=== PATIENT | male | born 1945 | race Hispanic/Latino ===

== ENCOUNTER 2016-07-25 12:36 | Observation (INO) | payer MEDICARE, MEDICAID ==
[2016-07-25 12:54] VITALS: BMI 31.2
[2016-07-25 13:01] VITALS: O2SAT 98
--- NOTE | 2016-07-25 13:06 | ED PDOC ---
Arrival/HPI - General Chief Complaint: High Blood Sugar Time Seen by Provider: 07/25/16 12:38 Historian: Patient - History of Present Illness Narrative History of Present Illness (Text): 07/25/16 12:59 A 71 year old male, whose past medical history includes diabetes (on metformin and januvia), hypertension, high cholesterol, congestive heart failure (on lasix ), COPD and emphysema, was brought in by EMS to the emergency department for a high blood sugar today. Patient states he was in a free medical screening, where the nurse called EMS because of his high blood sugar level. Patient reports he has not taking his [place] today because he ran out of it two days ago. Patient denies any fever, cough, shortness of breath, chest pain or any other complaints at this time. PMD: Dr. Beatty Time/Duration: 4-6 hours Symptom Onset: Gradual Symptom Course: Unchanged Quality: Other Activities at Onset: Rest Modifying Factors (Text): none Context: Home Associated Symptoms (Text): none Past Medical History - Provider Review Nursing Documentation Reviewed: Yes - Past History Past History: Non-Contributing - Infectious Disease Hx of Infectious Diseases: None - Tetanus Immunization Tetanus Immunization: Unknown - Cardiac Hx Congestive Heart Failure: Yes Hx Hypertension: Yes - Pulmonary Hx Chronic Obstructive Pulmonary Disease (COPD): Yes - Neurological Hx Transient Ischemic Attacks (TIA): No - HEENT Hx HEENT Disorder: Yes Hx Cataracts: Yes - Renal Hx Renal Disorder: Yes Hx Pyelonephritis: Yes - Endocrine/Metabolic Hx Diabetes Mellitus Type 1: Yes Hx Diabetes Mellitus Type 2: Yes - Hematological/Oncological Hx Blood Disorders: No - Integumentary Hx Dermatological Disorder: No Other/Comment: RIGHT KNEE WITH BLK SCAB FROM FALL SKIN ABRASION 06-07-15,LEFT KNEE WITH SCARRING FROM FALLS - Musculoskeletal/Rheumatological Hx Falls: Yes - Gastrointestinal Hx Gastrointestinal Disorders: Yes Hx Gastroesophageal Reflux: Yes - Genitourinary/Gynecological Hx Genitourinary Disorders: No - Psychiatric Hx Psychophysiologic Disorder: Yes Hx Bipolar Disorder: Yes Hx Depression: Yes (With shock treatments) Hx Schizophrenia: Yes Hx Substance Use: No - Past Surgical History Past Surgical History: No Previous - Surgical History Hx Amputation: No Hx Appendectomy: No - Anesthesia Hx Anesthesia: No Hx Anesthesia Reactions: No Hx Malignant Hyperthermia: No - Suicidal Assessment Feels Threatened In Home Enviroment: No Family/Social History - Physician Review Nursing Documentation Reviewed: Yes Family/Social History: No Known Family HX Smoking Status: Never Smoked Hx Alcohol Use: No Hx Substance Use: No Hx Substance Use Treatment: No Allergies/Home Meds Allergies/Adverse Reactions: Allergies No Known Allergies Allergy (Verified 04/21/16 21:09) Home Medications: Home Meds Medication Instructions Recorded Confirmed Clonazepam 1 mg PO DAILY 01/01/12 07/25/16 Simvastatin 40 mg PO DAILY 01/01/12 07/25/16 Celecoxib 200 mg PO DAILY 07/24/14 07/25/16 Ergocalciferol [Drisdol 50,000 50,000 iu PO MON 07/24/14 07/25/16 Intl Units Cap] Sitagliptin Phosphate [Januvia] 100 mg PO DAILY 07/24/14 07/25/16 Enalapril Maleate [Vasotec] 5 mg PO DAILY 05/22/16 07/25/16 Gabapentin 300 mg PO TID 05/22/16 07/25/16 GlipiZIDE 10 mg PO DAILY 05/22/16 07/25/16 Olanzapine 10 mg PO HS 05/22/16 07/25/16 Clonazepam [Klonopin] 2 mg PO HS 07/25/16 07/25/16 Divalproex Sodium [Divalproex 1,500 mg PO HS 07/25/16 07/25/16 Sodium ER] Gonpa-6-Glln Ethyl Esters 1 GM 1 tab PO BID 07/25/16 07/25/16 [Lovaza] metFORMIN [glucOPHAGE] 1,000 mg PO BID 07/25/16 07/25/16 Review of Systems - Physician Review All systems were reviewed & negative as marked: Yes - Review of Systems Constitutional: Other (high blood sugar). absent: Fevers Respiratory: absent: SOB, Cough Cardiovascular: absent: Chest Pain Physical Exam Vital Signs Reviewed: Yes Vital Signs Temp Pulse Resp BP Pulse Ox 07/25/16 17:37 97.2 F L 86 16 136/77 98 07/25/16 16:48 97.8 F 91 H 16 149/89 98 07/25/16 15:00 86 18 146/82 98 07/25/16 13:00 97.6 F 97 H 18 154/92 H 98 Temperature: Afebrile Blood Pressure: Hypertensive Pulse: Regular Respiratory Rate: Normal Appearance: Positive for: Well-Appearing, Non-Toxic, Comfortable Mental Status: Positive for: Alert and Oriented X 3 - Systems Exam Head: Present: Atraumatic, Normocephalic Pupils: Present: PERRL Extroacular Muscles: Present: EOMI Conjunctiva: Present: Normal Mouth: Present: Moist Mucous Membranes Neck: Present: Normal Range of Motion Respiratory/Chest: Present: Clear to Auscultation, Good Air Exchange. No: Respiratory Distress, Accessory Muscle Use Cardiovascular: Present: Regular Rate and Rhythm, Normal S1, S2. No: Murmurs Abdomen: Present: Normal Bowel Sounds. No: Tenderness, Distention, Peritoneal Signs Back: Present: Normal Inspection Upper Extremity: Present: Normal Inspection. No: Cyanosis, Edema Lower Extremity: Present: Edema (2+ pitting edema bilaterally) Neurological: Present: GCS=15, CN II-XII Intact, Speech Normal Skin: Present: Warm, Dry, Normal Color. No: Rashes Psychiatric: Present: Alert, Oriented x 3, Normal Insight, Normal Concentration Medical Decision Making ED Course and Treatment: 07/25/16 13:10 Impression: 71 year old male complaining of high blood sugar. Differential Diagnosis included but are not limited to: hyperglycemia Plan: -- EKG -- Chest X-ray -- Labs -- Urinalysis -- Reassess and disposition Prior Visits: Notes and results from previous visits were reviewed. The patient last presented to the emergency department on 05/22/16 for evaluation of a near syncope episode. - Lab Interpretations I have reviewed the lab results: Yes - Medication Orders Current Medication Orders: Discontinued Medications Sodium Chloride (Sodium Chloride 0.9%) 500 mls @ 999 mls/hr IV .Q31M STA Stop: 07/25/16 14:35 Last Admin: 07/25/16 14:21 Dose: 999 MLS/HR eMAR Start Stop Document 07/25/16 14:21 ERIC (Rec: 07/25/16 14:21 ERIC [id number]) Intravenous Solution Start Date 07/25/16 Start Time 14:15 End Date 07/25/16 End time 14:45 Total Infusion Time 30 Insulin Human Regular (Humulin R) 10 units IVP STAT STA Stop: 07/25/16 14:04 Last Admin: 07/25/16 14:21 Dose: 10 UNITS IVP Administration Document 07/25/16 14:21 ERIC (Rec: 07/25/16 14:22 [facility] [id number]) Charges for Administration # of IVP Administrations 1 Insulin Human Regular (Humulin R) 10 units IVP STAT STA Stop: 07/25/16 15:06 Last Admin: 07/25/16 15:58 Dose: 10 UNITS IVP Administration Document 07/25/16 15:58 [facility] (Rec: 07/25/16 15:58 [place] [id number]) Charges for Administration # of IVP Administrations 1 Insulin Human Regular (Humulin R) 10 units IVP STAT STA Stop: 07/25/16 16:49 Last Admin: 07/25/16 17:03 Dose: 10 UNITS IVP Administration Document 07/25/16 17:03 [facility] (Rec: 07/25/16 17:03 [place] [id number]) Charges for Administration # of IVP Administrations 1 ED OBSERVATION Date of observation admission: 07/25/16 Time of observation admission: 12:44 - Observation admission statement Patient is being placed in observation because:: high blood sugar level - Goals of Observation Goals of observation are:: blood glucose control - Progress Note Progress Note: EKG: Ordered, reviewed, and independently interpreted the EKG. Rate : 92 BPM Rhythm : NSR Interpretation : Q waves in leads III and avF. 07/25/16 13:52 Chest X-Ray impression: As read by me, no acute findings. 07/25/16 14:03 Patient blood glucose is 527 and potassium is 5.8. Will give Insulin and IV Fluids. 07/25/16 14:11 Dr. Beatty was paged. 07/25/16 15:04 Patient blood sugar has gone down to 372. Will give another Insulin. 07/25/16 16:18 Dr. Beatty paged. 07/25/16 16:48 A third insulin ordered. 07/25/16 17:[address] Beatty, who came to the emergency department, she states it is okay to discharge patient home and she will follow up with him out patient. On re-evaluation, the patient feels better and is in no acute distress. I have discussed the results and plan with the patient, who expresses understanding. Patient in agreement with plan to discharged home. Patient is stable for discharge. Patient was instructed to follow up with physician/clinic in 1-2 days or return if symptoms worsen or new concerning symptoms arise. - Scribe Statement The provider has reviewed the documentation as recorded by the Luis A Chairez training under Victoriano Marina All medical record entries made by the Henokibnafisa were at my direction and personally dictated by me. I have reviewed the chart and agree that the record accurately reflects my personal performance of the history, physical exam, medical decision making, and the department course for this patient. I have also personally directed, reviewed, and agree with the discharge instructions and disposition. Disposition/Present on Arrival - Present on Arrival Any Indicators Present on Arrival: Yes History of DVT/PE: No History of Uncontrolled Diabetes: Yes Urinary Catheter: No History of Decub. Ulcer: No History Surgical Site Infection Following: None - Disposition Have Diagnosis and Disposition been Completed?: Yes Diagnosis: Hyperglycemia Disposition: HOME/ ROUTINE Disposition Time: 12:44 Patient Plan: Discharge Patient Problems: Current Active Problems Problem Status Diagnosed Chest pain Acute Dizziness Acute Dysuria Acute Hematuria Acute Pyelonephritis Acute Syncope Acute Urinary tract infection Acute Condition: IMPROVED
[2016-07-25 13:38] LABS: ADD MANUAL DIFF? NO
[2016-07-25 13:44] LABS: VENOUS BLOOD GAS BASE EXCESS -0.8 mmol/L (0.0-2.0); VENOUS BLOOD PH 7.34 (7.32-7.43)
[2016-07-25 13:50] LABS: BASO # 0.02 K/mm3 (0.0-2.0); BASO % 0.3 % (0.0-3.0); EOS # 0.1 (0.0-0.7); EOS % 1.6 % (1.5-5.0); GRAN # 3.68 (1.4-6.5); GRAN % 54.4 % (50.0-68.0); HEMATOCRIT 32.2 % (42.0-52.0); LYMPH # 2.4 (1.2-3.4); LYMPH % 35.7 % (22.0-35.0); MEAN CELL VOLUME 83.6 fL (80.0-105.0); MEAN CORPUSCULAR HEMOGLOBIN 28.3 pg (25.0-35.0); MEAN CORPUSCULAR HGB CONC 33.9 g/dl (31.0-37.0); MEAN PLATELET VOLUME 9.5 fl (7.0-11.0); MONO # 0.5 (0.1-0.6); PLATELET COUNT 248 10^3/uL (120.0-450.0); RED CELL DISTRIBUTION WIDTH 13.2 % (11.5-14.5); WHITE BLOOD COUNT 6.8 10^3/ul (4.5-11.0)
[2016-07-25 13:53] LABS: ALB/GLOB RATIO 1.2 (1.1-1.8); ALKALINE PHOSPHATASE 63 U/L (38-133); ALT/SGPT 33 U/L (7-56); AST/SGOT 20 U/L (15-59); BILIRUBIN,TOTAL 0.5 mg/dL (0.2-1.3); BLOOD UREA NITROGEN 27 mg/dL (7-21); CALCIUM 9.4 mg/dL (8.4-10.5); CARBON DIOXIDE 25 mmol/L (21-33); CHLORIDE 97 mmol/L (98-107); GFR AFRICAN-AMERICAN > 60; MAGNESIUM 1.7 mg/dL (1.7-2.2); PHOSPHOROUS 3.5 mg/dL (2.5-4.5); SODIUM 129 mmol/L (132-148); TOTAL PROTEIN 6.4 g/dL (5.8-8.3)
[2016-07-25] MEDS ORDERED: Insulin Regular 1 UNITS/0.01 ML ML IVP STA ×3 (14:03→16:48)
[2016-07-25 14:04] LABS: GLUCOSE,RANDOM 527 mg/dL (70-110)
[2016-07-25 14:05] LABS: POTASSIUM 5.8 mmol/L (3.6-5.0)
[2016-07-25] MEDS ORDERED: Sodium Chloride 0.9% 500 ML IV STA (14:05)
--- NOTE | 2016-07-25 14:12 | RAD ---
HISTORY: Sepsis Patient COMPARISON: 05/21/2016 FINDINGS: LUNGS: No active pulmonary disease. PLEURA: No significant pleural effusion identified, no pneumothorax apparent. CARDIOVASCULAR: Normal. OSSEOUS STRUCTURES: No significant abnormalities. VISUALIZED UPPER ABDOMEN: Normal. OTHER FINDINGS: None. IMPRESSION: No active disease.
--- NOTE | 2016-07-25 15:49 | CARD ---
APPROVED REPORT EKG Measurement Heart [id number] <Conclusion> Normal sinus rhythm Inferior infarct, age undetermined Possible Anterior infarct, age undetermined Abnormal ECG
[2016-07-25 16:10] LABS: URINE BILIRUBIN NEGATIVE (NEGATIVE); URINE BLOOD SMALL (NEGATIVE); URINE GLUCOSE (UA) >=1000 mg/dL (NEGATIVE); URINE KETONE NEGATIVE (NEGATIVE); URINE LEUKOCYTE ESTERASE NEGATIVE Leu/uL (NEGATIVE); URINE PROTEIN 100 mg/dL (<30 mg/dL); URINE UROBILINOGEN 0.2 E.U./dL (<1 E.U./dL)
[2016-07-25 16:12] LABS: URINE APPEARANCE CLEAR (CLEAR); URINE COLOR YELLOW (YELLOW)
[2016-07-25 16:35] LABS: URINE BACTERIA NEG (NEG); URINE EPITHELIAL CELLS 0 - 2 /hpf (0-5); URINE RBC 0 - 2 /hpf (0-2); URINE WBC NEGATIVE /hpf (0-6)
[2016-07-25 16:49] VITALS: RESP 16
[2016-07-25 16:53] LABS: VENOUS BLOOD GAS BASE EXCESS -0.8 mmol/L (0.0-2.0); VENOUS BLOOD PH 7.38 (7.32-7.43)
[2016-07-25 17:38] VITALS: BP 136/77; PULSE 86; TEMP 97.2
== END 2016-07-25 17:59 | disposition home or self-care (01) ==
LOC: ED 12:36 → EROBSV 12:40
PROVIDERS: ADMIT Emergency Medicine; ATTEND Emergency Medicine
DX: E11.65 Type 2 diabetes mellitus with hyperglycemia (principal); Z79.84 Long term (current) use of oral hypoglycemic drugs; I10 Essential (primary) hypertension; E78.00 Pure hypercholesterolemia, unspecified
CPT/HCPCS: 71010; 80053; 81001; 82803; 82948; 83735; 84100; 85025; 87040; 87086; 93005; 96374; 96376; 99284; G0378; J7040

== ENCOUNTER 2016-07-26 10:27 | Emergency (ER) | payer MEDICARE, MEDICAID ==
[2016-07-26 10:27] VITALS: BMI 31.2
[2016-07-26 10:33] VITALS: RESP 18; TEMP 98.4; O2SAT 99
--- NOTE | 2016-07-26 11:06 | ED PDOC ---
Arrival/HPI - General Historian: Patient - General Chief Complaint: Trauma Time Seen by Provider: 07/26/16 10:51 - History of Present Illness Narrative History of Present Illness (Text): 07/26/16 10:57 71yo male with history of Parkinson's, frequent falls, diabetes and hypertension BIBA for evaluation s/p trauma this morning. States he lost his balance this morning, while trying to get to a bus after shopping and fell. Reports previous history of falls. He denies headache ,dizziness, back pain, chest pain, any somatic complaint, visual change. (Anupam Gaitan A) Past Medical History - Provider Review Nursing Documentation Reviewed: Yes - Past History Past History: Non-Contributing - Infectious Disease Hx of Infectious Diseases: None - Tetanus Immunization Tetanus Immunization: Unknown - Cardiac Hx Cardiac Disorders: Yes Hx Congestive Heart Failure: Yes Hx Hypertension: Yes - Pulmonary Hx Respiratory Disorders: Yes Hx Chronic Obstructive Pulmonary Disease (COPD): Yes - Neurological Hx Neurological Disorder: Yes Hx Parkinson's Disease: Yes Hx Transient Ischemic Attacks (TIA): No - HEENT Hx HEENT Disorder: Yes Hx Cataracts: Yes - Renal Hx Renal Disorder: Yes Hx Pyelonephritis: Yes - Endocrine/Metabolic Hx Endocrine Disorders: Yes Hx Diabetes Mellitus Type 1: Yes Hx Diabetes Mellitus Type 2: Yes - Hematological/Oncological Hx Blood Disorders: No - Integumentary Hx Dermatological Disorder: No - Musculoskeletal/Rheumatological Hx Musculoskeletal Disorders: Yes Hx Falls: Yes - Gastrointestinal Hx Gastrointestinal Disorders: Yes Hx Gastroesophageal Reflux: Yes - Genitourinary/Gynecological Hx Genitourinary Disorders: No - Psychiatric Hx Psychophysiologic Disorder: Yes Hx Bipolar Disorder: Yes Hx Depression: Yes (With shock treatments) Hx Schizophrenia: Yes Hx Substance Use: No - Past Surgical History Past Surgical History: No Previous - Surgical History Hx Amputation: No Hx Appendectomy: No Hx Orthopedic Surgery: Yes - Anesthesia Hx Anesthesia: No Hx Anesthesia Reactions: No Hx Malignant Hyperthermia: No - Suicidal Assessment Feels Threatened In Home Enviroment: No Family/Social History - Physician Review Nursing Documentation Reviewed: Yes Family/Social History: Unknown Family HX Smoking Status: Never Smoked Hx Alcohol Use: No Hx Substance Use: No Hx Substance Use Treatment: No Allergies/Home Meds Allergies/Adverse Reactions: Allergies No Known Allergies Allergy (Verified 07/26/16 10:38) Home Medications: Home Meds Medication Instructions Recorded Confirmed Clonazepam 1 mg PO DAILY 01/01/12 07/25/16 Simvastatin 40 mg PO DAILY 01/01/12 07/25/16 Celecoxib 200 mg PO DAILY 07/24/14 07/25/16 Ergocalciferol [Drisdol 50,000 50,000 iu PO MON 07/24/14 07/25/16 Intl Units Cap] Sitagliptin Phosphate [Januvia] 100 mg PO DAILY 07/24/14 07/25/16 Enalapril Maleate [Vasotec] 5 mg PO DAILY 05/22/16 07/25/16 Gabapentin 300 mg PO TID 05/22/16 07/25/16 GlipiZIDE 10 mg PO DAILY 05/22/16 07/25/16 Olanzapine 10 mg PO HS 05/22/16 07/25/16 Clonazepam [Klonopin] 2 mg PO HS 07/25/16 07/25/16 Divalproex Sodium [Divalproex 1,500 mg PO HS 07/25/16 07/25/16 Sodium ER] Mlnaq-[id number] Ethyl Esters 1 GM 1 tab PO BID 07/25/16 07/25/16 [Lovaza] metFORMIN [glucOPHAGE] 1,000 mg PO BID 07/25/16 07/25/16 Review of Systems - Physician Review All systems were reviewed & negative as marked: Yes - Review of Systems Constitutional: Normal, Other (Evaluation s/p trauma) Eyes: Normal ENT: Normal Respiratory: Normal Cardiovascular: Normal Gastrointestinal: Normal Genitourinary Male: Normal Musculoskeletal: Normal Skin: Normal Neurological: Normal Endocrine: Normal Hemo/Lymphatic: Normal Psychiatric: Normal Physical Exam Vital Signs Reviewed: Yes Temperature: Afebrile Blood Pressure: Normal Pulse: Regular Respiratory Rate: Normal Appearance: Positive for: Well-Appearing, Non-Toxic, Comfortable Pain Distress: None Mental Status: Positive for: Alert and Oriented X 3 Finger Stick Blood Glucose: 333 - Systems Exam Head: Present: Atraumatic, Normocephalic Pupils: Present: PERRL Extroacular Muscles: Present: EOMI Conjunctiva: Present: Normal Mouth: Present: Moist Mucous Membranes Neck: Present: Normal Range of Motion Respiratory/Chest: Present: Clear to Auscultation, Good Air Exchange. No: Respiratory Distress, Accessory Muscle Use Cardiovascular: Present: Regular Rate and Rhythm, Normal S1, S2. No: Murmurs Abdomen: Present: Normal Bowel Sounds. No: Tenderness, Distention, Peritoneal Signs Back: Present: Normal Inspection Upper Extremity: Present: Normal Inspection. No: Cyanosis, Edema Lower Extremity: Present: Normal Inspection, Capillary Refill < 2 s. No: Edema Neurological: Present: GCS=15, CN II-XII Intact, Speech Normal, Motor Func Grossly Intact, Normal Sensory Function, Normal Cerebellar Funct, Other (No focal neurological deficit) Skin: Present: Warm, Dry, Normal Color. No: Rashes Psychiatric: Present: Alert, Oriented x 3, Normal Insight, Normal Concentration Vital Signs Temp Pulse Resp BP Pulse Ox 07/26/16 11:58 91 H 18 121/78 99 07/26/16 10:32 98.4 F 93 H 18 117/76 99 Medical Decision Making ED Course and Treatment: I was available for consultation during PA evaluation. The chart was reviewed by me, and I agree with disposition. The documented history was done by the physician data warehousing manager. The documented physical exam was done by the physician data warehousing manager. The documented procedures were done by the physician data warehousing manager. (Juan Jose Black) 07/26/16 14:30 PT was in ED for stated history. He remain hemodynamically stable. He have no focal neurological deficit. Denies any somatic complaint. Head CT was negative. Result was DW with the. He was DC home to f/u with his PMD. Case was also DW Dr. Beatty while she was in ED and she agreed with the plan. (Anupam Gaitan) - RAD Interpretation Radiology Orders: 07/26/16 10:51 HEAD W/O CONTRAST [CT] Stat Disposition/Present on Arrival - Present on Arrival Any Indicators Present on Arrival: No History of DVT/PE: No History of Uncontrolled Diabetes: Yes Urinary Catheter: No History of Decub. Ulcer: No History Surgical Site Infection Following: None - Disposition Have Diagnosis and Disposition been Completed?: Yes Disposition Time: 11:35 Patient Plan: Discharge - Disposition Diagnosis: Multiple falls Disposition: HOME/ ROUTINE Patient Problems: Current Active Problems Problem Status Diagnosed Chest pain Acute Dizziness Acute Dysuria Acute Hematuria Acute Pyelonephritis Acute Syncope Acute Urinary tract infection Acute Condition: STABLE Additional Instructions: Follow upw ith your doctor Return to ED for any new or worsening symptoms Referrals: [facility] at [facility] [place] [Outside] - Follow up with primary
--- NOTE | 2016-07-26 11:23 | CT ---
PROCEDURE: CT HEAD WITHOUT CONTRAST. HISTORY: head injury COMPARISON: 05/22/2016 TECHNIQUE: Axial computed tomography images were obtained through the head/brain without intravenous contrast. Radiation dose: Total exam DLP = 779 mGy-cm. This CT exam was performed using one or more of the following dose reduction techniques: Automated exposure control, adjustment of the mA and/or kV according to patient size, and/or use of iterative reconstruction technique. FINDINGS: HEMORRHAGE: No intracranial hemorrhage. BRAIN: No mass effect or edema. Chronic microvascular changes in the periventricular white matter. Mild to moderate atrophy VENTRICLES: Unremarkable. No hydrocephalus. CALVARIUM: Unremarkable. PARANASAL SINUSES: Unremarkable as visualized. No significant inflammatory changes. MASTOID AIR CELLS: Unremarkable as visualized. No inflammatory changes. OTHER FINDINGS: None. IMPRESSION: No acute findings
[2016-07-26 12:09] VITALS: BP 121/78; PULSE 91
== END 2016-07-26 11:58 | disposition home or self-care (01) ==
LOC: ED 10:27
DX: Z04.3 Encounter for examination and observation following other accident (principal); W01.0XXA Fall on same level from slipping, tripping and stumbling without subsequent striking against object, initial encounter; Z91.81 History of falling; Y92.89 Other specified places as the place of occurrence of the external cause; G20 Parkinson's disease; I10 Essential (primary) hypertension

== ENCOUNTER 2016-09-22 10:41 | Emergency (ER) | payer MEDICARE, MEDICAID ==
[2016-09-22 10:42] VITALS: BMI 31.2
[2016-09-22 10:55] VITALS: RESP 18; TEMP 98.1
[2016-09-22] MEDS ORDERED: TDAP Vaccine 0.5 mL Syr IM ONE (11:11)
[2016-09-22 11:32] VITALS: O2SAT 98
--- NOTE | 2016-09-22 12:02 | ED PDOC ---
Arrival/HPI - General Chief Complaint: Trauma Time Seen by Provider: 09/22/16 11:01 Historian: Patient - History of Present Illness Narrative History of Present Illness (Text): 09/22/16 12:05 A 71 year old male, with a history of Parkinson's, diabetes and frequent falls , brought by EMS to the emergency department s/p fall. Patient reports fell on street while walking to bus. Patient has minimal pain and bruises to both knees. Patient also notes elevated blood sugar level. Patient denies loss of consciousness, shortness of breath or any other complaints at this time. Patient 's tetanus status unknown. PMD: Dr. Beatty Time/Duration: Prior to Arrival Symptom Course: Unchanged Activities at Onset: Light Context: Street Past Medical History - Provider Review Nursing Documentation Reviewed: Yes - Past History Past History: Non-Contributing - Infectious Disease Hx of Infectious Diseases: None - Tetanus Immunization Tetanus Immunization: Unknown - Cardiac Hx Cardiac Disorders: Yes Hx Congestive Heart Failure: Yes Hx Hypertension: Yes - Pulmonary Hx Respiratory Disorders: Yes Hx Chronic Obstructive Pulmonary Disease (COPD): Yes - Neurological Hx Neurological Disorder: Yes Hx Parkinson's Disease: Yes Hx Transient Ischemic Attacks (TIA): No - HEENT Hx HEENT Disorder: Yes Hx Cataracts: Yes - Renal Hx Renal Disorder: Yes Hx Pyelonephritis: Yes - Endocrine/Metabolic Hx Endocrine Disorders: Yes Hx Diabetes Mellitus Type 1: Yes - Hematological/Oncological Hx Blood Disorders: No - Integumentary Hx Dermatological Disorder: No - Musculoskeletal/Rheumatological Hx Musculoskeletal Disorders: Yes Hx Falls: Yes - Gastrointestinal Hx Gastrointestinal Disorders: Yes Hx Gastroesophageal Reflux: Yes - Genitourinary/Gynecological Hx Genitourinary Disorders: No - Psychiatric Hx Psychophysiologic Disorder: Yes Hx Bipolar Disorder: Yes Hx Depression: Yes (With shock treatments) Hx Schizophrenia: Yes Hx Substance Use: No - Past Surgical History Past Surgical History: No Previous - Surgical History Hx Amputation: No Hx Appendectomy: No Hx Orthopedic Surgery: Yes - Anesthesia Hx Anesthesia: No Hx Anesthesia Reactions: No Hx Malignant Hyperthermia: No - Suicidal Assessment Feels Threatened In Home Enviroment: No Family/Social History - Physician Review Nursing Documentation Reviewed: Yes Family/Social History: No Known Family HX Smoking Status: Never Smoked Hx Alcohol Use: No Hx Substance Use: No Hx Substance Use Treatment: No Allergies/Home Meds Allergies/Adverse Reactions: Allergies No Known Allergies Allergy (Verified 09/22/16 10:52) Home Medications: Home Meds Medication Instructions Recorded Confirmed Clonazepam 1 mg PO DAILY 01/01/12 07/25/16 Simvastatin 40 mg PO DAILY 01/01/12 07/25/16 Celecoxib 200 mg PO DAILY 07/24/14 07/25/16 Ergocalciferol [Drisdol 50,000 50,000 iu PO MON 07/24/14 07/25/16 Intl Units Cap] Sitagliptin Phosphate [Januvia] 100 mg PO DAILY 07/24/14 07/25/16 Enalapril Maleate [Vasotec] 5 mg PO DAILY 05/22/16 07/25/16 Gabapentin 300 mg PO TID 05/22/16 07/25/16 GlipiZIDE 10 mg PO DAILY 05/22/16 07/25/16 Olanzapine 10 mg PO HS 05/22/16 07/25/16 Clonazepam [Klonopin] 2 mg PO HS 07/25/16 07/25/16 Divalproex Sodium [Divalproex 1,500 mg PO HS 07/25/16 07/25/16 Sodium ER] [id number] Ethyl Esters 1 GM 1 tab PO BID 07/25/16 07/25/16 [Lovaza] metFORMIN [glucOPHAGE] 1,000 mg PO BID 07/25/16 07/25/16 Review of Systems - Review of Systems Constitutional: Normal Eyes: Normal ENT: Normal Respiratory: Normal. absent: SOB Cardiovascular: Normal Gastrointestinal: Normal Genitourinary Male: Normal Musculoskeletal: Normal Skin: Other (bilateral knee abrasions) Neurological: Normal Endocrine: Normal Hemo/Lymphatic: Normal Psychiatric: Normal Physical Exam Vital Signs Reviewed: Yes Vital Signs Temp Pulse Resp BP Pulse Ox 09/22/16 12:07 89 18 141/75 98 09/22/16 11:32 98.1 F 95 H 18 143/77 98 09/22/16 10:52 98.1 F 100 H 18 143/77 96 Temperature: Afebrile Blood Pressure: Normal Pulse: Regular Respiratory Rate: Normal Appearance: Positive for: Well-Appearing, Non-Toxic, Comfortable Pain Distress: None Mental Status: Positive for: Alert and Oriented X 3 - Systems Exam Head: Present: Atraumatic, Normocephalic Pupils: Present: PERRL Extroacular Muscles: Present: EOMI Conjunctiva: Present: Normal Mouth: Present: Moist Mucous Membranes Neck: Present: Normal Range of Motion Respiratory/Chest: Present: Clear to Auscultation, Good Air Exchange. No: Respiratory Distress, Accessory Muscle Use Cardiovascular: Present: Regular Rate and Rhythm, Normal S1, S2. No: Murmurs Abdomen: Present: Normal Bowel Sounds. No: Tenderness, Distention, Peritoneal Signs Back: Present: Normal Inspection Upper Extremity: Present: Normal Inspection. No: Cyanosis, Edema Lower Extremity: Present: Normal Inspection. No: Edema Neurological: Present: GCS=15, CN II-XII Intact, Speech Normal Skin: Present: Abrasion (bilateral knee abrasions). No: Rashes Psychiatric: Present: Alert, Oriented x 3, Normal Insight, Normal Concentration Medical Decision Making ED Course and Treatment: 09/22/16 11:51 Impression: A 71 year old male s/p fall. Plan: -- Radiology Knee with patella bilat -- Boostrix vaccine -- Reassess and disposition Prior Visits: Notes and results from previous visits were reviewed. Patient last reported to the emergency department on 07/26/16 for evaluation after fall. Progress Notes: Patient reports "feels great". Patient refuses other workup. Patient doesn't want anything for pain. Wants blood sugar to be checked and xray of knees. Blood sugar checked, 293. Requests lab to rule out DKA. Patient alert and awake , asking for insulin and to be discharged. 09/22/16 12:43 insulin dosed. pt specifically requesting to not wait in emergency room for repeat blood sugar. requests immediate dc Bilateral Knee Radiographs Creator : Hans Kinsey MD 09/22/2016 12:39 IMPRESSION: Normal radiographs of the knees. Leaving Against Medical Advice (AMA): The patient is choosing to leave against medical advice. I have personally explained to the patient that choosing to do so may result in permanent bodily harm or . I have discussed at great length that without further evaluation and monitoring there may be unforeseen circumstances and/or deterioration causing permanent bodily harm or as a result of their choice. The patient is alert, oriented, and shows the mental capacity to make clear decisions regarding the patients health care at this time. The patient continues to wish to leave against medical advice. The patient has been advised that they should return to the emergency room immediately if they change their mind at any time, or if their condition begins to change or worsen in any way. - RAD Interpretation Radiology Orders: 09/22/16 11:11 KNEE W PATELLA BILAT 3 VIEW [RAD] Stat - Medication Orders Current Medication Orders: Discontinued Medications Insulin Human Regular (Humulin R) 4 units SC STAT STA Stop: 09/22/16 12:17 Last Admin: 09/22/16 13:04 Dose: 4 units Tetanus/Reduced Diphtheria/Acell Pertussis (Boostrix Vaccine Inj) 0.5 ml IM .ONCE ONE Stop: 09/22/16 11:12 Last Admin: 09/22/16 12:57 Dose: 0.5 ml - Scribe Statement The provider has reviewed the documentation as recorded by the Luis A Chairez Provider Scribe Attestation: All medical record entries made by the Scribe were at my direction and personally dictated by me. I have reviewed the chart and agree that the record accurately reflects my personal performance of the history, physical exam, medical decision making, and the department course for this patient. I have also personally directed, reviewed, and agree with the discharge instructions and disposition. Disposition/Present on Arrival - Present on Arrival Any Indicators Present on Arrival: No History of DVT/PE: No History of Uncontrolled Diabetes: Yes Urinary Catheter: No History of Decub. Ulcer: No History Surgical Site Infection Following: None - Disposition Have Diagnosis and Disposition been Completed?: Yes Diagnosis: Knee injury, Hyperglycemia Disposition: AGAINST MEDICAL ADVICE Disposition Time: 12:44 Patient Problems: Current Active Problems Problem Status Onset Hyperglycemia Acute Knee injury Acute Condition: UNKNOWN Discharge Instructions (ExitCare): Knee Sprain (ED), Diabetic Hyperglycemia (ED ) Additional Instructions: please follow up wiht your doctor/specialist. return to emergency room with worsening symptoms or concerns. Referrals: Kylee Beatty MD [Primary Care Provider] - Follow up with primary Jas Benson MD [Staff Provider] - Follow up with primary
[2016-09-22 12:08] VITALS: PULSE 89
[2016-09-22] MEDS ORDERED: Insulin Regular 1 UNITS/0.01 ML ML SC STA (12:16)
--- NOTE | 2016-09-22 12:36 | RAD ---
PROCEDURE: Bilateral Knee Radiographs. HISTORY: fall COMPARISON: None. FINDINGS: BONES: Right Knee: Normal. No fracture. Left Knee: Normal. No fracture. JOINTS: Right Knee: Normal. No osteoarthritis. Left knee: Normal. No osteoarthritis. SOFT TISSUES: Right Knee: Normal. Left Knee: Normal. JOINT EFFUSION: Right Knee: None. Left Knee: None. OTHER FINDINGS: None. IMPRESSION: Normal radiographs of the knees.
[2016-09-22 13:29] VITALS: BP 139/77
== END 2016-09-22 13:31 | disposition left against medical advice (07) ==
LOC: ED 10:41
DX: S89.92XA Unspecified injury of left lower leg, initial encounter (principal); S89.91XA Unspecified injury of right lower leg, initial encounter; W18.30XA Fall on same level, unspecified, initial encounter; Z91.81 History of falling; Y93.01 Activity, walking, marching and hiking; Y92.410 Unspecified street and highway as the place of occurrence of the external cause; E10.65 Type 1 diabetes mellitus with hyperglycemia; I10 Essential (primary) hypertension; Z23 Encounter for immunization

== ENCOUNTER 2016-11-29 08:09 | Inpatient (IN) | payer MEDICARE, MEDICAID ==
--- NOTE | 2016-11-29 08:27 | ED PDOC ---
Arrival/HPI - General Chief Complaint: Weakness/Neurological Deficit Time Seen by Provider: 11/29/16 08:22 Historian: Patient - History of Present Illness Narrative History of Present Illness (Text): 11/29/16 08:15 Pt is a 71 year old male, with a history of diabetes, schizophrenia, hypertension, CHF, and frequent falls, brought by EMS to the emergency department s/p fall. Patient reports he was holding onto the railway of the stairs in his apartment when both legs became weak and he ended up falling on his buttocks. Patient states there is currently no pain. Patient did not hit their head and notes he last fell on 11/24/2016. Patient denies any loss of consciousness, headache, fever, chills, cough, nausea, vomiting, diarrhea, visual changes, neck pain, dysuria, hematuria, frequency, bowel/bladder incontinence or retention, abdominal pain. Patient denies other bodily pain or injury. PMD: Dr. Beatty Time/Duration: Prior to Arrival Symptom Onset: Sudden Symptom Course: Unchanged Activities at Onset: Light Modifying Factors (Text): None Context: Home Associated Symptoms (Text): None Past Medical History - Provider Review Nursing Documentation Reviewed: Yes - Past History Past History: Non-Contributing - Infectious Disease Hx of Infectious Diseases: None - Tetanus Immunization Tetanus Immunization: Unknown - Cardiac Hx Cardiac Disorders: Yes Hx Congestive Heart Failure: Yes Hx Hypertension: Yes - Pulmonary Hx Respiratory Disorders: Yes Hx Chronic Obstructive Pulmonary Disease (COPD): Yes - Neurological Hx Neurological Disorder: Yes Hx Parkinson's Disease: Yes Hx Transient Ischemic Attacks (TIA): No - HEENT Hx HEENT Disorder: Yes Hx Cataracts: Yes - Renal Hx Renal Disorder: Yes Hx Pyelonephritis: Yes - Endocrine/Metabolic Hx Endocrine Disorders: Yes Hx Diabetes Mellitus Type 1: Yes - Hematological/Oncological Hx Blood Disorders: No - Integumentary Hx Dermatological Disorder: No - Musculoskeletal/Rheumatological Hx Musculoskeletal Disorders: Yes Hx Falls: Yes - Gastrointestinal Hx Gastrointestinal Disorders: Yes Hx Gastroesophageal Reflux: Yes - Genitourinary/Gynecological Hx Genitourinary Disorders: No - Psychiatric Hx Psychophysiologic Disorder: Yes Hx Bipolar Disorder: Yes Hx Depression: Yes (With shock treatments) Hx Schizophrenia: Yes Hx Substance Use: No - Past Surgical History Past Surgical History: No Previous - Surgical History Hx Amputation: No Hx Appendectomy: No Hx Orthopedic Surgery: Yes - Anesthesia Hx Anesthesia: No Hx Anesthesia Reactions: No Hx Malignant Hyperthermia: No - Suicidal Assessment Feels Threatened In Home Enviroment: No Family/Social History - Physician Review Nursing Documentation Reviewed: Yes Family/Social History: Diabetes Smoking Status: Never Smoked Hx Alcohol Use: No Hx Substance Use: No Hx Substance Use Treatment: No Allergies/Home Meds Allergies/Adverse Reactions: Allergies No Known Allergies Allergy (Verified 11/29/16 08:15) Home Medications: Home Meds Medication Instructions Recorded Confirmed Celecoxib [Celebrex] 200 mg PO DAILY 11/29/16 11/29/16 Divalproex [Depakote ER] 3 tab PO HS 11/29/16 11/29/16 Enalapril Maleate [Vasotec] 5 mg PO DAILY 11/29/16 11/29/16 Furosemide [Lasix] 40 mg PO BID 11/29/16 11/29/16 Gabapentin 300 mg PO TID 11/29/16 11/29/16 Glipizide [Glipizide ER] 10 mg PO DAILY 11/29/16 11/29/16 MetFORMIN [glucoPHAGE] 1,000 mg PO BID 11/29/16 11/29/16 OLANZapine [Zyprexa] 10 mg PO DAILY 11/29/16 11/29/16 Simvastatin 40 mg PO DAILY 11/29/16 11/29/16 Spironolactone [Aldactone] 25 mg PO BID 11/29/16 11/29/16 clonazePAM [Klonopin] 1 mg PO TID 11/29/16 11/29/16 Review of Systems - Review of Systems Constitutional: absent: Fevers ENT: absent: Rhinorrhea Respiratory: absent: SOB Cardiovascular: absent: Chest Pain Gastrointestinal: absent: Abdominal Pain Musculoskeletal: Other (bilateral leg weakness). absent: Back Pain Neurological: absent: Headache, Dizziness Endocrine: absent: Diaphoresis Physical Exam Vital Signs Reviewed: Yes Vital Signs Temp Pulse Resp BP Pulse Ox 11/29/16 10:09 97.5 F L 84 19 118/71 97 11/29/16 08:14 97.5 F L 93 H 17 122/58 L 95 Temperature: Afebrile Blood Pressure: Hypotensive Pulse: Tachycardic Respiratory Rate: Normal Appearance: Positive for: Well-Appearing, Non-Toxic, Comfortable Pain Distress: None Mental Status: Positive for: Alert and Oriented X 3 Finger Stick Blood Glucose: 324 - Systems Exam Head: Present: Atraumatic, Normocephalic Pupils: Present: PERRL Extroacular Muscles: Present: EOMI Conjunctiva: Present: Normal Mouth: Present: Moist Mucous Membranes Neck: Present: Normal Range of Motion Respiratory/Chest: Present: Clear to Auscultation, Good Air Exchange. No: Respiratory Distress, Accessory Muscle Use Cardiovascular: Present: Regular Rate and Rhythm, Normal S1, S2. No: Murmurs Abdomen: Present: Normal Bowel Sounds. No: Tenderness, Distention, Peritoneal Signs Back: Present: Normal Inspection Upper Extremity: Present: Normal Inspection. No: Cyanosis, Edema Lower Extremity: Present: Edema Neurological: Present: GCS=15, CN II-XII Intact, Speech Normal Skin: Present: Warm, Dry, Normal Color. No: Rashes Psychiatric: Present: Alert, Oriented x 3, Normal Insight, Normal Concentration Medical Decision Making ED Course and Treatment: 11/29/16 08:15 Impression: Fall -- but with increasing falls throughout this week Differential Diagnosis included but are not limited to: mechanical fall r/o pelvic injury vs. contusion vs. dehydration causing weakness/falls Plan: -- EKG -- Chest X-ray -- Chest X-ray -- Pelvis X-ray -- Reassess and disposition Progress Notes: 11/29/16 09:59 Case was discussed with Dr. Beatty, who is aware of plan and treatment. Patient will be admitted for hyperlipidemia and dehydration. 11/29/2016 EKG: Ordered, reviewed, and independently interpreted the EKG. Rate : 94 BPM Rhythm : NSR Interpretation : No ST/T wave changes. 11/29/16 11:15 Pelvis X-ray: Creator : Nataly Lizarraga V. COMPARISON: 04/21/2016 FINDINGS: BONES: Pelvic Bones: No fracture or gross lytic lesion Hips: Bilateral superolateral acetabular spurring with mixed cystic and sclerotic and osseous hypertrophic changes along each superolateral acetabulum. There is loss of the normal concavity -superior femoral head neck junctions bilaterally right greater than left-a femoral acetabular impingement syndrome in addition to bilateral osteoarthrosis is suspect. JOINTS: Sacroiliac Joints: Unremarkable. Pubic Symphysis: Unremarkable. OTHER FINDINGS: Mild inferior endplate ridging and mild L4-5 disc space narrowing. Trace left L 5-S1 probable facet hypertrophy IMPRESSION: No fracture or lytic lesion. 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 Correlate clinically - Lab Interpretations Lab Results: 11/29/16 08:41 11/29/16 08:41 Lab Results 11/29/16 08:41: Sodium 136, Potassium 6.0 H*, Chloride 103, Carbon Dioxide 24, Anion Gap 15, BUN 46 H, Creatinine 1.6 H, Est GFR ( Amer) 52, Est GFR ( Non-Af Amer) 43, Random Glucose 308 H* D, Calcium 9.2, Total Bilirubin 0.3, AST 24, ALT 32, Alkaline Phosphatase 65, Lactate Dehydrogenase 447, Total Creatine Kinase 177, Troponin I < 0.01, NT-Pro-B Natriuret Pep 73.4, Total Protein 6.0, Albumin 3.5, Globulin 2.5, Albumin/Globulin Ratio 1.4 11/29/16 08:41: WBC 7.8, RBC 3.55, Hgb 10.1 L, Hct 30.0 L, MCV 84.5, MCH 28.5, MCHC 33.7, RDW 13.0, Plt Count 189, MPV 9.4, Gran % 36.7 L, Lymph % (Auto) 52.5 H, [place] % (Auto) 7.7 H, Eos % (Auto) 2.8, Baso % (Auto) 0.3, Gran # 2.84, Lymph # 4.1 H, [place] # 0.6, Eos # 0.2, Baso # 0.02 - RAD Interpretation Radiology Orders: 11/29/16 08:27 CHEST TWO VIEWS (PA/LAT) [RAD] Stat 11/29/16 08:28 PELVIS ONE VIEW [RAD] Stat Water Ski Assembler: Radiologist - EKG Interpretation Interpreted by ED Physician: Yes Type: 12 lead EKG - Medication Orders Current Medication Orders: Discontinued Medications Albuterol/Ipratropium (Duoneb 3 Mg/0.5 Mg (3 Ml) Ud) 3 ml IH [id number] RUBEN Last Admin: 12/02/16 14:43 Dose: 3 ml Atorvastatin Calcium (Lipitor) 20 mg PO DIN RUBEN Last Admin: 12/02/16 17:05 Dose: 20 mg Clonazepam (Klonopin) 1 mg PO TID RUBEN PRN Reason: Protocol Last Admin: 12/02/16 17:05 Dose: 1 mg Divalproex Sodium (Depakote Er(Once Daily)) 1,500 mg PO HS RUBEN PRN Reason: Protocol Last Admin: 12/01/16 21:44 Dose: 1,500 mg Furosemide (Lasix) 40 mg PO BID [facility] Last Admin: 12/02/16 17:05 Dose: 40 mg Gabapentin (Neurontin) 300 mg PO TID RUBEN PRN Reason: Protocol Last Admin: 12/02/16 17:06 Dose: 300 mg Glipizide (Glucotrol Xl) 10 mg PO DAILY [facility] Last Admin: 12/02/16 09:28 Dose: 10 mg Sodium Chloride (Sodium Chloride 0.9%) 500 mls @ 75 mls/hr IV .[id number] [facility] Last Admin: 12/01/16 23:10 Dose: 75 mls/hr Insulin Human Regular (Humulin R Low) 0 units SC ACHS RUBEN PRN Reason: Protocol Last Admin: 12/02/16 17:05 Dose: 4 units Lisinopril (Zestril) 5 mg PO DAILY [facility] Last Admin: 12/02/16 09:28 Dose: 5 mg Non-Formulary Medication (Celecoxib [Celebrex]) 200 mg PO DAILY [facility] Last Admin: 12/02/16 09:29 Dose: Olanzapine (Zyprexa) 10 mg PO DAILY [facility] PRN Reason: Protocol Last Admin: 12/02/16 09:27 Dose: 10 mg Re-Assess: Reassess Psych Meds Document 12/02/16 10:27 ML (Rec: 12/02/16 11:29 ML [id number]) Reassess Psych Med Effective Pneumococcal Polyvalent Vaccine (Pneumovax 23 Vaccine) 0.5 ml IM .ONCE ONE Stop: 11/29/16 13:33 Sodium Polystyrene Sulfonate (Kayexalate Oral Susp) 15 gm PO STAT STA Stop: 11/29/16 09:26 Last Admin: 11/29/16 09:53 Dose: 15 gm Sodium Polystyrene Sulfonate (Kayexalate Oral Susp) 30 gm PO ONCE ONE Stop: 11/29/16 19:34 Last Admin: 11/29/16 20:22 Dose: 30 gm Sodium Polystyrene Sulfonate (Kayexalate Oral Susp) 30 gm PO ONCE ONE Stop: 11/30/16 10:59 Last Admin: 11/30/16 11:56 Dose: 30 gm - Scribe Statement The provider has reviewed the documentation as recorded by the Scribe 11/29/2016 Ruth Ann Whitingibe Attestation: All medical record entries made by the Scribe were at my direction and personally dictated by me. I have reviewed the chart and agree that the record accurately reflects my personal performance of the history, physical exam, medical decision making, and the department course for this patient. I have also personally directed, reviewed, and agree with the discharge instructions and disposition. Disposition/Present on Arrival - Present on Arrival Any Indicators Present on Arrival: No History of DVT/PE: No History of Uncontrolled Diabetes: Yes Urinary Catheter: No History of Decub. Ulcer: No History Surgical Site Infection Following: None - Disposition Have Diagnosis and Disposition been Completed?: Yes Diagnosis: Hyperkalemia, Dehydration, Hyperglycemia Disposition: HOSPITALIZED Disposition Time: 10:31 Patient Plan: Observation Condition: FAIR
[2016-11-29 08:54] LABS: ADD MANUAL DIFF? NO
[2016-11-29 08:58] LABS: BASO # 0.02 K/mm3 (0.0-2.0); BASO % 0.3 % (0.0-3.0); EOS # 0.2 (0.0-0.7); EOS % 2.8 % (1.5-5.0); GRAN # 2.84 (1.4-6.5); GRAN % 36.7 % (50.0-68.0); LYMPH # 4.1 (1.2-3.4); LYMPH % 52.5 % (22.0-35.0); MEAN CELL VOLUME 84.5 fl (80.0-105.0); MEAN CORPUSCULAR HEMOGLOBIN 28.5 pg (25.0-35.0); MEAN CORPUSCULAR HGB CONC 33.7 g/dl (31.0-37.0); MEAN PLATELET VOLUME 9.4 fl (7.0-11.0); MONO # 0.6 (0.1-0.6); MONO % 7.7 % (1.0-6.0); PLATELET COUNT 189 10^3/uL (120.0-450.0); WHITE BLOOD COUNT 7.8 10^3/ul (4.5-11.0)
[2016-11-29 09:06] LABS: ALB/GLOB RATIO 1.4 (1.1-1.8); ALKALINE PHOSPHATASE 65 U/L (38-133); ALT/SGPT 32 U/L (7-56); AST/SGOT 24 U/L (15-59); BILIRUBIN,TOTAL 0.3 mg/dL (0.2-1.3); BLOOD UREA NITROGEN 46 mg/dL (7-21); CALCIUM 9.2 mg/dL (8.4-10.5); CARBON DIOXIDE 24 mmol/L (21-33); CHLORIDE 103 mmol/L (98-107); GFR AFRICAN-AMERICAN 52; SODIUM 136 mmol/L (132-148)
[2016-11-29 09:13] LABS: GLUCOSE,RANDOM 308 mg/dL (70-110)
[2016-11-29 09:20] LABS: TROPONIN I < 0.01 ng/mL
[2016-11-29] MEDS ORDERED: Sod Polystyrene Sulf 15 gm/60 ml Oral Susp PO STA (09:25)
[2016-11-29] MEDS: Sodium Chloride 0.9% 500 ML IV SCH (10:44)
--- NOTE | 2016-11-29 11:06 | RAD ---
PROCEDURE: Radiographs of the pelvis. HISTORY: Fell and landed on buttocks COMPARISON: 04/21/2016 FINDINGS: BONES: Pelvic Bones: No fracture or gross lytic lesion Hips: Bilateral superolateral acetabular spurring with mixed cystic and sclerotic and osseous hypertrophic changes along each superolateral acetabulum. There is loss of the normal concavity -superior femoral head neck junctions bilaterally right greater than left-a femoral acetabular impingement syndrome in addition to bilateral osteoarthrosis is suspect. JOINTS: Sacroiliac Joints: Unremarkable. Pubic Symphysis: Unremarkable. OTHER FINDINGS: Mild inferior endplate ridging and mild L4-5 disc space narrowing. Trace left L 5-S1 probable facet hypertrophy IMPRESSION: No fracture or lytic lesion. 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 Correlate clinically
--- NOTE | 2016-11-29 12:23 | RAD ---
HISTORY: Fall earlier; also with hx of CHF COMPARISON: 07/25/2016 1:40 p.m. TECHNIQUE: Chest PA and lateral FINDINGS: LUNGS: No active pulmonary disease. Shallow lung volumes. No armani pulmonary vascular congestion noted no interval change in the vascular pattern appreciated PLEURA: No significant pleural effusion identified. No pneumothorax apparent. CARDIOVASCULAR: Probable minimal left ventricular [id number] OSSEOUS STRUCTURES: Thoracic diffuse spondylosis. Mild right shoulder arthrosis VISUALIZED UPPER ABDOMEN: Normal. OTHER FINDINGS: None. IMPRESSION: No active disease.
--- NOTE | 2016-11-29 13:14 | CARD ---
APPROVED REPORT EKG Measurement Heart [id number] <Conclusion> Normal sinus rhythm Left Anterior Tay-Block. Poor R Progression V1-V3.
[2016-11-29 13:32] VITALS: BMI 28.7
[2016-11-29] MEDS ORDERED: Pneumococcal 23-Valent Vaccine IM ONE (13:32)
[2016-11-29] MEDS: Insulin Reg-LOW-Coverage SC SCH ×2 (17:44→23:03)
[2016-11-29] MEDS ORDERED: Sod Polystyrene Sulf 15 gm/60 ml Oral Susp PO ONE (19:33)
--- NOTE | 2016-11-30 03:41 | CP.PCM.HP ---
History of Present Illness - History of Present Illness History of Present Illness: 11/29/16 Colin Iqbal is a 71 year old male, with a history of diabetes, schizophrenia, hypertension, CHF, and frequent falls, brought by EMS to the emergency department s/p fall. Patient reports he was holding onto the railway of the stairs in his apartment when both legs became weak and he ended up falling on his buttocks. Patient states there is currently no pain. Patient did not hit their head and notes he last fell on 11/24/2016. Patient denies any loss of consciousness, headache, fever, chills, cough, nausea, vomiting, diarrhea, visual changes, neck pain, dysuria, hematuria, frequency, bowel/ bladder incontinence or retention, abdominal pain. Patient denies other bodily pain or injury. Present on Admission - Present on Admission Any Indicators Present on Admission: No Review of Systems - Review of Systems Systems not reviewed;Unavailable: Respiratory Distress - Constitutional Constitutional: As Per HPI - EENT Eyes: As Per HPI Ears: As Per HPI Nose/Mouth/Throat: As Per HPI - Cardiovascular Cardiovascular: As Per HPI - Respiratory Respiratory: As Per HPI - Gastrointestinal Gastrointestinal: As Per HPI - Genitourinary Genitourinary: As Per HPI - Musculoskeletal Musculoskeletal: As Per HPI - Integumentary Integumentary: As Per HPI - Neurological Neurological: As Per HPI - Psychiatric Psychiatric: As Per HPI - Endocrine Endocrine: As Per HPI - Hematologic/Lymphatic Hematologic: As Per HPI Past Patient History - Infectious Disease Hx of Infectious Diseases: None - Tetanus Immunizations Tetanus Immunization: Unknown - Past Social History Smoking Status: Never Smoked - CARDIAC Hx Cardiac Disorders: Yes (cad) Hx Angina: Yes Hx Congestive Heart Failure: Yes Hx Hypercholesterolemia: Yes Hx Hypertension: Yes Hx Peripheral Edema: Yes (ble +1 pitting) - PULMONARY Hx Respiratory Disorders: Yes Hx Chronic Obstructive Pulmonary Disease (COPD): Yes Hx Pneumonia: Yes Hx Sleep Apnea: Yes - NEUROLOGICAL Hx Neurological Disorder: Yes (weakness) Hx Parkinson's Disease: Yes Hx Seizures: Yes Hx Transient Ischemic Attacks (TIA): No - HEENT Hx HEENT Problems: Yes (eyeglasses) Hx Cataracts: Yes - RENAL Hx Chronic Kidney Disease: Yes Hx Pyelonephritis: Yes - ENDOCRINE/METABOLIC Hx Endocrine Disorders: Yes Hx Diabetes Mellitus Type 1: Yes - HEMATOLOGICAL/ONCOLOGICAL Hx Blood Disorders: No - INTEGUMENTARY Other/Comment: healing abrasions to both knees due to fall 09/2016, right upper arm scar from childhood injury - MUSCULOSKELETAL/RHEUMATOLOGICAL Hx Musculoskeletal Disorders: Yes (rhabdomylitis) Hx Arthritis: Yes Hx Back Pain: Yes (chronic) Hx Falls: Yes (fell today and 09/2016) Hx Unsteady Gait: Yes (cane/walker) Other/Comment: right hand trauma with cellulitis in the past - GASTROINTESTINAL Hx Gastrointestinal Disorders: Yes Hx Gastroesophageal Reflux: Yes - GENITOURINARY/GYNECOLOGICAL Hx Genitourinary Disorders: No - PSYCHIATRIC Hx Psychophysiologic Disorder: Yes Hx Bipolar Disorder: Yes Hx Depression: Yes (With shock treatments) Hx Schizophrenia: Yes Hx Substance Use: No - SURGICAL HISTORY Hx Amputation: No Hx Appendectomy: No Hx Orthopedic Surgery: Yes (pt can't remember what kind) Other/Comment: abces removed from back - ANESTHESIA Hx Anesthesia: No Hx Anesthesia Reactions: No Hx Malignant Hyperthermia: No Meds Allergies/Adverse Reactions: Allergies Allergy/AdvReac Type Severity Reaction Status Date / Time No Known Allergies Allergy Verified 11/29/16 08:15 Physical Exam - Constitutional Appears: Well - Head Exam Head Exam: ATRAUMATIC, NORMAL INSPECTION, NORMOCEPHALIC - Eye Exam Eye Exam: EOMI, Normal appearance, PERRL Pupil Exam: NORMAL ACCOMODATION, PERRL - ENT Exam ENT Exam: Mucous Membranes Moist, Normal Exam - Neck Exam Neck exam: Positive for: Normal Inspection - Respiratory Exam Respiratory Exam: Clear to Auscultation Bilateral, NORMAL BREATHING PATTERN - Cardiovascular Exam Cardiovascular Exam: REGULAR RHYTHM - GI/Abdominal Exam GI & Abdominal Exam: Normal Bowel Sounds, Soft. absent: Tenderness - Rectal Exam Rectal Exam: NORMAL INSPECTION - Exam Exam: Circumcision, NORMAL INSPECTION External exam: NORMAL EXTERNAL EXAM Speculum exam: NORMAL SPECULUM EXAM Bimanual exam: NORMAL BIMANUAL EXAM - Extremities Exam Extremities exam: Positive for: normal inspection - Back Exam Back exam: NORMAL INSPECTION - Neurological Exam Neurological exam: Alert, CN II-XII Intact, Normal Gait, Oriented x3, Reflexes Normal - Psychiatric Exam Psychiatric exam: Normal Affect, Normal Mood - Skin Skin Exam: Dry, Intact, Normal Color, Warm Results - Vital Signs Recent Vital Signs: Last Vital Signs Temp 97.5 F L 11/29/16 12:56 Pulse 84 08/16/17 12:56 Resp 19 11/29/16 12:56 BP 118/71 11/29/16 12:56 Pulse Ox 97 11/29/16 10:09 - Labs Result Diagrams: 11/29/16 08:41 11/29/16 08:41 Labs: Laboratory Results - last 24 hr 11/29/16 11/29/16 17:33 21:33 POC Glucose (mg/dL) 379 H 225 H Assessment & Plan (1) Dehydration Status: Acute (2) Hyperglycemia Status: Acute (3) Hyperkalemia Status: Acute (4) CHF exacerbation Status: Acute (5) Cellulitis Status: Acute (6) Chest pain Status: Acute (7) Diabetes Status: Acute (8) Dizziness Status: Acute (9) Fall Status: Acute (10) Hyperglycemia Status: Acute (11) Hyperkalemia Status: Acute (12) Multiple falls Status: Acute (13) Parkinsons disease Status: Acute (14) Seizure Status: Acute (15) Sepsis Status: Acute (16) Syncope Status: Acute - Assessment and Plan (Free Text) Assessment: Colin Iqbal is a 71 year old male, with a history of diabetes, schizophrenia, hypertension, CHF, and frequent falls, brought by EMS to the emergency department s/p fall. Patient reports he was holding onto the railway of the stairs in his apartment when both legs became weak and he ended up falling on his buttocks. Patient states there is currently no pain. Patient did not hit their head and notes he last fell on 11/24/2016. Patient denies any loss of consciousness, headache, fever, chills, cough, nausea, vomiting, diarrhea, visual changes, neck pain, dysuria, hematuria, frequency, bowel/ bladder incontinence or retention, abdominal pain. Patient denies other bodily pain or injury. Plan: Hyperkalemia, Dehydration, Hyperglycemia , admitted ot . labs done , d/d with er , meds restarted
[2016-11-30 05:40] LABS: TROPONIN I 0.01 ng/mL
[2016-11-30] MEDS: Insulin Reg-LOW-Coverage SC SCH ×4 (08:30→22:49)
[2016-11-30 09:06] LABS: ALB/GLOB RATIO 1.3 (1.1-1.8); BILIRUBIN,TOTAL 0.3 mg/dL (0.2-1.3); CALCIUM 9.3 mg/dL (8.4-10.5); POTASSIUM 5.5 mmol/L (3.6-5.0); TOTAL PROTEIN 6.3 g/dL (5.8-8.3)
[2016-11-30] MEDS: GlipiZIDE 10 mg SR Tab PO SCH (09:07)
[2016-11-30] MEDS: Sodium Chloride 0.9% 500 ML IV SCH (09:08)
[2016-11-30] MEDS ORDERED: Sod Polystyrene Sulf 15 gm/60 ml Oral Susp PO ONE (10:58)
[2016-11-30] MEDS: Non Formulary Medication (Celecoxib [Celebrex] 200 MG) PO SCH (11:26)
[2016-11-30] MEDS: Divalproex 500 mg ER (ONCE DAILY formulation) PO SCH (21:25)
--- NOTE | 2016-12-01 03:21 | PN ---
DATE: 11/30/2016 SUBJECTIVE: The patient was seen and examined at the bedside, looking comfortable. No nausea, no vomiting, and no diarrhea. No hematuria or hematochezia. No swelling of the legs. No chest pain or palpitation. PHYSICAL EXAMINATION: VITAL SIGNS: Temperature is 97.8, pulse is 67, blood pressure is 87/57 and respiratory rate is 20. HEENT: Head is normocephalic and atraumatic. Eyes: PERRLA. Extraocular muscles intact. Conjunctivae clear. Nose is patent. Mucous membranes are moist. NECK: Supple. No carotid bruits or thyromegaly. CHEST: Bilaterally symmetrical. HEART: S1 and S2, positive. LUNGS: Clear to auscultation. ABDOMEN: Soft. Bowel sounds are present. No organomegaly. EXTREMITIES: No edema. No cyanosis. NEUROLOGICAL: The patient is awake and alert. Moving all four extremities. No focal deficits. MEDICATIONS: Celebrex, Depakote, Glucotrol, insulin, Klonopin, Lasix, Lipitor, Zestril and Zyprexa. LABORATORY DATA: White blood cell is 7.8, hemoglobin is 10.1, hematocrit is 30.0 and platelet are 189. Glucose of 188, 312, 262 and 95. Hemoglobin A1c is 11.8. ASSESSMENT AND PLAN: Mr. Farida Shaw is a 71 years old male with anemia, non-insulin dependent diabetes mellitus, hypertriglyceridemia, history of schizophrenia noncompliant, history of rhabdomyolysis, history of hypertension, congestive heart failure, brought to the emergency room this time for fall, hyperkalemia, dehydrated, hyperglycemia. Kayexalate given. Repeat laboratories. Gastrointestinal prophylaxis, getting physical therapy, and fall precautions. We will follow up. Kylee Beatty MD
[2016-12-01 06:11] LABS: BLOOD UREA NITROGEN 26 mg/dL (7-21); CALCIUM 8.3 mg/dL (8.4-10.5); CARBON DIOXIDE 20 mmol/L (21-33); CHLORIDE 111 mmol/L (95-110); GFR AFRICAN-AMERICAN > 60; GLUCOSE,RANDOM 175 mg/dL (70-110); POTASSIUM 4.6 mmol/L (3.6-5.0); SODIUM 139 mmol/L (132-148)
[2016-12-01] MEDS: Insulin Reg-LOW-Coverage SC SCH ×4 (09:29→21:44)
[2016-12-01] MEDS: GlipiZIDE 10 mg SR Tab PO SCH (09:31)
[2016-12-01] MEDS: Non Formulary Medication (Celecoxib [Celebrex] 200 MG) PO SCH (09:31)
[2016-12-01] MEDS: Sodium Chloride 0.9% 500 ML IV SCH ×2 (09:32→23:10)
[2016-12-01] MEDS: Divalproex 500 mg ER (ONCE DAILY formulation) PO SCH (21:44)
[2016-12-01 21:51] VITALS: RESP 18
--- NOTE | 2016-12-01 23:07 | PN ---
SUBJECTIVE: The patient is 71-year-old male. The patient is seen and examined on the bedside, looking comfortable. No nausea, vomiting or diarrhea. No hematuria, hematochezia. No swelling of the legs. No chest pain. No palpitation. No headache or dizziness. Sitting on the chair, chatting to his friends. PHYSICAL EXAMINATION VITAL SIGNS: Temperature 98, pulse 72, blood pressure 140/76, respiratory rate 20. HEENT: Head is normocephalic and atraumatic. Eyes PERRLA. Extraocular muscles intact. Conjunctivae clear. Nose is patent. Mucous membrane moist. NECK: Supple. No carotid bruits. No JVD or thyromegaly. CHEST: Bilaterally symmetrical. HEART: S1 and S2 positive. LUNGS: Clear to auscultation. ABDOMEN: Soft. Bowel sounds present. No organomegaly. EXTREMITIES: No edema. No cyanosis. NEUROLOGIC: The patient is awake and alert. Moving all 4 extremities. No focal deficit. MEDICATIONS: Celebrex, Depakote, Glucotrol, Klonopin, Lasix, Lipitor, gabapentin, Zestril, and Zyprexa. LABORATORY DATA: We do not have his labs today, but reviewed old labs. Glucose 182, 234, and 171. ASSESSMENT AND PLAN: The patient is a 71-year-old male with history of multiple falls; [id number] diabetes mellitus, not controlled; anemia; hypertriglyceridemia; schizophrenia; history of rhabdomyolysis; hypertension; congestive heart failure; obstructive sleep apnea syndrome; renal insufficiency; hyperkalemia, got Kayexalate. We did X-ray of the pelvis which showed bilateral hip arthrosis, femoral morphology consistent with bilateral femoral acetabular impingement syndrome. Went for chest x-ray, negative. Getting physical therapy. We will do MRI of the pelvis. We will follow orthopedic consult. May be that is the reason he is having multiple falls due to impingement syndrome. We will follow up. Kylee Beatty MD MTDErnst
[2016-12-02] MEDS: Albuterol-Ipratrop 3 mg / 0.5 (3 ml) UD IH SCH ×3 (01:15→14:43)
[2016-12-02 07:08] VITALS: PULSE 72; TEMP 97.6; O2SAT 100
[2016-12-02 07:30] LABS: ALB/GLOB RATIO 1.2 (1.1-1.8); ALKALINE PHOSPHATASE 52 U/L (38-133); ALT/SGPT 31 U/L (7-56); AST/SGOT 19 U/L (15-59); BILIRUBIN,TOTAL 0.1 mg/dL (0.2-1.3); BLOOD UREA NITROGEN 26 mg/dL (7-21); CALCIUM 8.7 mg/dL (8.4-10.5); CARBON DIOXIDE 24 mmol/L (21-33); CHLORIDE 111 mmol/L (98-107); GFR AFRICAN-AMERICAN > 60; GLUCOSE,RANDOM 153 mg/dL (70-110); POTASSIUM 4.3 mmol/L (3.6-5.0); SODIUM 142 mmol/L (132-148); TOTAL PROTEIN 5.5 g/dL (5.8-8.3)
[2016-12-02] MEDS: Insulin Reg-LOW-Coverage SC SCH ×3 (09:26→17:05)
[2016-12-02] MEDS: GlipiZIDE 10 mg SR Tab PO SCH (09:28)
[2016-12-02] MEDS: Non Formulary Medication (Celecoxib [Celebrex] 200 MG) PO SCH (09:29)
--- NOTE | 2016-12-02 11:10 | CON ---
PULMONARY CONSULTATION DATE: REFERRING PHYSICIAN: Kylee Beatty MD REASON FOR CONSULTATION: Obstructive sleep apnea syndrome, obstructive lung disease, and heart failure. HISTORY OF PRESENT ILLNESS: This is a 71-year-old gentleman with diabetes, schizophrenia, hypertension, cardiomyopathy, obstructive sleep apnea syndrome, chronic lung disease and history of multiple falls. Apparently, he was leaving his building, he felt weak in the legs and sat down. Denying any syncopal episode. According to the patient, his CPAP machine had been broken for a while and could not use. No headache and no rhinitis. No nausea and no vomiting. Has a leg swelling. PAST MEDICAL HISTORY: Diabetes, schizophrenia, hypertension, obstructive sleep apnea syndrome, obstructive lung disease, cardiomyopathy mostly diastolic, and history of multiple falls with rhabdomyolysis in the past. ALLERGIES: NONE KNOWN. FAMILY HISTORY: No significant cardiopulmonary disease reported. SOCIAL HISTORY: Nonsmoker and nondrinker. MEDICATIONS: He is on Celebrex 200 mg daily, Depakote *------* p.o. at bedtime, glipizide 10 mg daily, insulin coverage, Klonopin 1 mg three times a day, Lasix 40 mg twice a day, Lipitor 20 mg daily, Neurontin 300 mg three times a day, IV fluids, normal saline 75 mL/hour, Zestril 5 mg daily and Zyprexa 10 mg daily. LABORATORY DATA: Shows hemoglobin of 10.1, hematocrit of 30.0, WBC of 7.8, and platelet count is 189. Sodium is 139, potassium is 4.6, chloride is 111, bicarbonate is 20, BUN is 26, creatinine is 1.4, glucose is 175, and calcium is 8.3. IMAGING DATA: He has a pelvic x-ray done on admission shows bilateral hip arthrosis *------* consistent with bilateral femoral acetabular impingement syndrome. Chest x-ray done on admission shows no active disease. IMPRESSION AND PLAN: Chronic obstructive lung disease, obstructive sleep apnea syndrome, schizophrenia, cardiomyopathy, hypertension, diabetes, anxiety disorder, history of multiple falls. We will place the patient on bilevel positive airway pressure, bronchodilator. and discontinue intravenous fluids. Continue diuretics. Gastric prophylaxis and deep vein thrombosis prophylaxis. Fall precautions and physical therapy. We will need outpatient attended sleep study to qualify for a new continuous positive airway pressure; according to the patient, his continuous positive airway pressure is about 10 years old and does not work. Thank you and we will follow with you. Myriam Ramírez MD
[2016-12-02 17:10] VITALS: BP 137/68
--- NOTE | 2016-12-03 02:52 | CON ---
DATE: 12/02/2016 REASON FOR CONSULT: Bilateral hip pain. HISTORY OF PRESENT ILLNESS: This is a 71-year-old gentleman who was admitted for hyperkalemia who had a questionable history of a fall. According to the patient, he said he never actually fell, but sat down on the ground because he could not make it up the stairs. Today, he says he has no pain. He says he can ambulate without any difficulty. He does use a quad cane. He denies any history of any numbness or tingling going down the legs. Denies any weakness. PHYSICAL EXAMINATION GENERAL: This is a gentleman in no apparent distress. He is awake, alert, and oriented. EXTREMITIES: Evaluation of his pelvis shows no obvious deformity or crepitus. He is nontender to AP stress or compression. He is tolerating active range of motion of both his hips without any pain. He has 5/5 strength with resisted hip flexion and abduction. No pain with passive internal and external rotation of his hips. His thighs and calves are soft and nontender. He is tolerating full active range of motion of his knees without any pain. There are no obvious effusions. LABORATORY DATA: X-rays of the AP pelvis show no acute fracture or dislocation, it does look like he has some bilateral degenerative changes on one view. IMPRESSION: Bilateral hip arthritis. PLAN: At this point, given that he is on a significant pain, we would watch this for now and let him ambulate as tolerated using his cane. Should his symptoms change, we will consider further imaging studies like a CAT scan or an MRI. Santiago Serrato MD
--- NOTE | 2016-12-03 16:03 | DS ---
CHIEF COMPLAINT: Fatigue, ataxia, falling a lot. HISTORY OF PRESENT ILLNESS: Mr. Colin Iqbal is a 71-year-old male with history of diabetes mellitus, hypertension, hypercholesterolemia, schizophrenia, congestive heart failure, multiple times falls, brought to the [facility] emergency room for fall. The patient reports that he was holding into a railing of the stairs in his apartment and both of his legs became weak and ended up falling on the buttocks. The patient states that there is continued pain and the patient do not hit her head. There are no visible injuries. We did x-ray of the chest and pelvis x-ray. Orthopedic consult called with Dr. Serrato, seen by Dr. Ramírez, felt better, got physical therapy. Physical therapy suggested TCU, transferred the patient to TCU. We will continue treatment there. PAST MEDICAL HISTORY: Congestive heart failure, hypertension, COPD, Parkinson's disease, cataract, pyelonephritis, diabetes mellitus type 1, fall, GERD, dyspepsia, schizophrenia. FAMILY HISTORY: Father and mother noncontributory. HABITS: Never smoked. No drugs. No ethanol. ALLERGIES: THE PATIENT IS NOT ALLERGIC TO ANY MEDICATIONS. HOME MEDICATIONS: Reviewed by me. REVIEW OF SYSTEMS: The patient is seen and examined at the bedside, sitting on the chair, feeling comfortable. No nausea, vomiting, diarrhea. No hematuria, no hematochezia. No headache, no dizziness. No anorexia. PHYSICAL EXAMINATION: VITAL SIGNS: Temperature 97.6, pulse 72, blood pressure 137/68, respiratory rate 18. HEENT: Head; normocephalic and atraumatic. Eyes; PERRLA. Extraocular muscles intact. Conjunctivae clear. Nose is patent. Mucous membranes moist. NECK: Supple. No carotid bruits, JVD or thyromegaly. CHEST: Bilaterally symmetrical. HEART: S1 and S2 positive. LUNGS: Clear to auscultation. ABDOMEN: Soft. Bowel sounds are present. No organomegaly. EXTREMITIES: No edema. No cyanosis. NEUROLOGIC: The patient is awake and alert. Moving all four extremities. No focal deficits. MEDICATIONS: Celebrex, Depakote, glipizide, insulin, Klonopin, Lasix, Lipitor, Neurontin, normal saline, and Zestril. LABORATORY DATA: White blood cell is 7.8, hemoglobin 10.1, hematocrit 30.0, platelets 189. Sodium 142, potassium 4.3, BUN 26, creatinine 1.6, glucose 328, 341, 179. ASSESSMENT AND PLAN: Mr. Colin Iqbal is a 71-year-old male with anemia, hyperchloremia, high BUN, uncontrolled diabetes mellitus, had history of multiple falls, obstructive sleep apnea syndrome, obstructive lung disease, cardiomyopathy mostly diastolic, history of rhabdomyolysis in the past, was admitted for fall, fatigue. We treated the patient on medical floor. Physical therapy called, they suggested we have transfer the patient to TCU. We will continue physical therapy there. Because of multiple falls, x-ray of the pelvis done which showed bilateral hip arthrosis, femoral morphology consistent with bilateral femoral acetabular impingement syndrome. We will do MRI and we will follow up. Kylee Beatty MD
== END 2016-12-02 18:18 | DRG 641 ==
LOC: ED 08:09 → ERH 10:28 → 3RSO 11:46
PROVIDERS: ADMIT Internal Medicine; ATTEND Internal Medicine
PROC: 5A09357 Assistance with Respiratory Ventilation, Less than 24 Consecutive Hours, Continuous Positive Airway Pressure (ICD-10-PCS; principal; 2016-12-02)
DX: E86.0 Dehydration (principal); I13.0 Hypertensive heart and chronic kidney disease with heart failure and stage 1 through stage 4 chronic kidney disease, or unspecified chronic kidney disease; I50.9 Heart failure, unspecified; G20 Parkinson's disease; I42.9 Cardiomyopathy, unspecified; E87.5 Hyperkalemia; E11.65 Type 2 diabetes mellitus with hyperglycemia; N18.9 Chronic kidney disease, unspecified; M16.0 Bilateral primary osteoarthritis of hip; F20.9 Schizophrenia, unspecified; J44.9 Chronic obstructive pulmonary disease, unspecified; G47.33 Obstructive sleep apnea (adult) (pediatric); F41.9 Anxiety disorder, unspecified; E78.1 Pure hyperglyceridemia; D64.9 Anemia, unspecified; K21.9 Gastro-esophageal reflux disease without esophagitis; R29.6 Repeated falls; R10.13 Epigastric pain; H26.9 Unspecified cataract; Z79.84 Long term (current) use of oral hypoglycemic drugs; Z91.19 Patient's noncompliance with other medical treatment and regimen

== ENCOUNTER 2016-12-02 18:23 | Inpatient (IN) | payer OTHER, MEDICAID ==
[2016-12-02 19:47] VITALS: BMI 30.9
[2016-12-02] MEDS: Divalproex 500 mg ER (ONCE DAILY formulation) PO SCH (22:24)
[2016-12-02] MEDS: Insulin Reg-LOW-Coverage SC SCH (22:25)
[2016-12-03] MEDS: Albuterol-Ipratrop 3 mg / 0.5 (3 ml) UD IH SCH ×4 (02:15→20:30)
[2016-12-03] MEDS: Insulin Reg-LOW-Coverage SC SCH ×4 (06:47→21:50)
[2016-12-03] MEDS: GlipiZIDE 10 mg SR Tab PO SCH (11:11)
[2016-12-03] MEDS: Non Formulary Medication (Celecoxib [Celebrex] 200 MG) PO SCH (11:11)
[2016-12-03] MEDS: Divalproex 500 mg ER (ONCE DAILY formulation) PO SCH (21:41)
[2016-12-04] MEDS: Albuterol-Ipratrop 3 mg / 0.5 (3 ml) UD IH SCH ×4 (02:30→20:18)
[2016-12-04] MEDS: Insulin Reg-LOW-Coverage SC SCH ×4 (06:32→22:59)
[2016-12-04] MEDS: GlipiZIDE 10 mg SR Tab PO SCH (10:13)
[2016-12-04] MEDS: Non Formulary Medication (Celecoxib [Celebrex] 200 MG) PO SCH (10:13)
[2016-12-04] MEDS: Divalproex 500 mg ER (ONCE DAILY formulation) PO SCH (22:58)
[2016-12-05] MEDS: Albuterol-Ipratrop 3 mg / 0.5 (3 ml) UD IH SCH ×4 (01:31→19:33)
[2016-12-05] MEDS: Insulin Reg-LOW-Coverage SC SCH ×4 (07:30→22:36)
--- NOTE | 2016-12-05 08:08 | HP ---
DATE: 12/03/2016 CHIEF COMPLAINT: Fatigue, ataxia, and falling a lot. Mr. Colin Iqbal is a 71-year-old male who was admitted to [facility] for fatigue, ataxia and tired, now transferred to TCU for continuity of care. The patient was seen by me on 12/03/2016. HISTORY OF PRESENT ILLNESS: Mr. Colin Iqbal is a 71-year-old male with a history of diabetes mellitus uncontrolled, hypertension, hypercholesterolemia, schizophrenia, congestive heart failure, multiple times falls, brought to the emergency department due to fall. The patient reported that he was holding onto a railing of the stairs in his apartment, as both of his legs became weak and ended up falling on the buttocks. The patient states there is no continuous pain. The patient did not hit his head. No nausea, vomiting, or diarrhea. No hematuria or hematochezia. No headache or dizziness. patient did physical therapy, seen by different physicians, thought better to transfer to TCU for continued care and rehab. PAST MEDICAL HISTORY: Congestive heart failure, COPD, Parkinson's disease, diabetes mellitus type 1, fall, GERD, dyspepsia, schizophrenia. FAMILY HISTORY: Father and mother noncontributory. HABITS: No smoking. No drugs. No ethanol. ALLERGIES: THE PATIENT IS NOT ALLERGIC TO ANY MEDICATIONS. HOME MEDICATIONS: Reviewed by me. Kylee Beatty MD MTDErnst
[2016-12-05] MEDS: GlipiZIDE 10 mg SR Tab PO SCH (10:05)
[2016-12-05] MEDS: Non Formulary Medication (Celecoxib [Celebrex] 200 MG) PO SCH (10:08)
[2016-12-05] MEDS: Divalproex 500 mg ER (ONCE DAILY formulation) PO SCH (21:39)
[2016-12-06] MEDS: Albuterol-Ipratrop 3 mg / 0.5 (3 ml) UD IH SCH ×4 (01:19→19:49)
[2016-12-06] MEDS: Insulin Reg-LOW-Coverage SC SCH ×4 (08:09→22:11)
[2016-12-06] MEDS: Non Formulary Medication (Celecoxib [Celebrex] 200 MG) PO SCH (10:13)
[2016-12-06] MEDS: GlipiZIDE 10 mg SR Tab PO SCH (10:13)
--- NOTE | 2016-12-06 14:07 | PN ---
DATE: 12/05/2016 SUBJECTIVE: The patient was seen and examined on the bedside, looking comfortable. No nausea, vomiting, diarrhea. No hematuria, no hematochezia, no swelling of the leg, no chest pain, no palpitations. No headache, no dizziness. He is getting physical therapy. PHYSICAL EXAMINATION VITAL SIGNS: Temperature 98.2, pulse 68, blood pressure 156/70, respiratory rate is 18, oxygenation 94. HEENT: Head normocephalic and atraumatic. Eyes PERRLA. Extraocular muscles intact. Conjunctivae clear. Nose patent. Mucous membranes moist. NECK: Supple. No carotid bruits. No JVD or thyromegaly. CHEST: Bilaterally symmetrical. HEART: S1 and S2 positive. LUNGS: Clear to auscultation. ABDOMEN: Soft. Bowel sounds positive. No organomegaly. EXTREMITIES: No edema, no cyanosis. NEUROLOGICAL: The patient is awake and alert. Moving all 4 extremities. No focal deficit. LABORATORY DATA: We do not have his labs today, but residual labs, glucose 260, 259, and 207. MEDICATIONS: Celebrex, Depakote, albuterol, glipizide, insulin, Klonopin, Lasix, Lipitor, Neurontin, Zestril, and Zyprexa. ASSESSMENT AND PLAN: Mr. Farida Shaw is a 71-year-old male with multiple medical problems, uncontrolled diabetes mellitus; congestive heart failure; Parkinson's disease; gastroesophageal reflux disease; dyspepsia; schizophrenia; obstructive sleep apnea; chronic obstructive pulmonary disease, noncompliant; history of ataxia; getting physical therapy; getting medications. GI and DVT prophylaxis. Repeat labs. We will follow up. Kylee Beatty MD
[2016-12-06 16:14] VITALS: RESP 18; O2SAT 97
[2016-12-06] MEDS: Divalproex 500 mg ER (ONCE DAILY formulation) PO SCH (22:26)
--- NOTE | 2016-12-07 01:41 | PN ---
SUBJECTIVE: The patient is a 71-year-old male. The patient was seen and examined on 12/04/2016. Looking comfortable. No nausea, vomiting, or diarrhea. No hematemesis or hematochezia. No swelling of the legs. No chest pain or palpitations. No headache, no dizziness. No constipation. PHYSICAL EXAMINATION: VITAL SIGNS: Temperature 97.8, pulse 75, blood pressure 102/66, respiratory rate 18. HEENT: Head normocephalic, atraumatic. Eyes: PERRLA. Extraocular muscles intact. Conjunctivae clear. Nose patent. Mucous membranes moist. NECK: Supple. No carotid bruits. No JVD or thyromegaly. CHEST: Bilaterally symmetrical. HEART: S1 and S2 positive. LUNGS: Clear to auscultation. ABDOMEN: Soft. Bowel sounds positive. No organomegaly. EXTREMITIES: No edema, no cyanosis. NEUROLOGIC: The patient is awake and alert. Moving all 4 extremities. No focal deficit. MEDICATIONS: Celebrex, Depakote, glipizide, insulin, Lisinopril. LABORATORY DATA: We do not have recent labs today, reviewed old labs. ASSESSMENT AND PLAN: The patient is a 71-year-old male with multiple medical problems, noncompliant, obesity, uncontrolled diabetes mellitus, had multiple admissions due to falls, rhabdomyolysis, congestive heart failure, Parkinson's disease, gastroesophageal reflux disease, dyspepsia, schizophrenia, obstructive sleep apnea syndrome. The patient is getting physical therapy. GI and DVT prophylaxis. We will follow up. Kylee Beatty MD
[2016-12-07] MEDS: Albuterol-Ipratrop 3 mg / 0.5 (3 ml) UD IH SCH ×2 (02:31→07:41)
--- NOTE | 2016-12-07 03:43 | PN ---
DATE: SUBJECTIVE: The patient was seen and examined on the bedside, looking comfortable, sitting on the chair. No nausea, vomiting, or diarrhea. No hematuria or hematochezia. No swelling of the legs. No chest pain. No palpitations. No headache or dizziness. Doing physical therapy. PHYSICAL EXAMINATION: VITAL SIGNS: Temperature 97.5, pulse 96, respiratory rate 18, blood pressure 120/75. HEENT: Head is normocephalic and atraumatic. Eyes; PERRLA. Extraocular muscles intact. Conjunctivae clear. Nose is patent. Mucous membrane moist. NECK: Supple. No carotid bruit, JVD, or thyromegaly. CHEST: Bilaterally symmetrical. HEART: S1 and S2 positive. LUNGS: Clear to auscultation. ABDOMEN: Soft. Bowel sounds positive. No organomegaly. EXTREMITIES: No edema. No cyanosis. NEUROLOGIC: The patient is awake and alert. Follow simple commands. MEDICATIONS: Celebrex, Depakote, DuoNeb, Glucotrol, insulin, Klonopin, Lasix, Lipitor, Neurontin, Zestril and Zyprexa. LABORATORY DATA: We do not have recent labs today, but reviewed old labs. Sugars 375. ASSESSMENT AND PLAN: Mr. Farida Shaw, 71 years old male, with multiple medical problems, noncompliant, had multiple time rhabdomyolysis , hospitalizations, schizophrenia, diabetes mellitus, hypertension, hypercholesterolemia, obesity, noncompliance, congestive heart failure, is noncompliant with the water pills. GI and DVT prophylaxis. Repeat labs. We will follow up. Kylee Beatty MD MTDD
[2016-12-07] MEDS: Insulin Reg-LOW-Coverage SC SCH (06:30)
[2016-12-07 07:58] LABS: MEAN CELL VOLUME 84.7 fl (80.0-105.0); MEAN CORPUSCULAR HGB CONC 33.1 g/dl (31.0-37.0); MEAN PLATELET VOLUME 9.6 fl (7.0-11.0); RED CELL DISTRIBUTION WIDTH 13.2 % (11.5-14.5); WHITE BLOOD COUNT 6.5 10^3/ul (4.5-11.0)
[2016-12-07 08:08] LABS: CALCIUM 9.6 mg/dL (8.4-10.5); POTASSIUM 4.7 mmol/L (3.6-5.0)
[2016-12-07 10:31] VITALS: TEMP 97.8
[2016-12-07] MEDS: Non Formulary Medication (Celecoxib [Celebrex] 200 MG) PO SCH (10:34)
[2016-12-07] MEDS: GlipiZIDE 10 mg SR Tab PO SCH (10:34)
[2016-12-07 10:37] VITALS: BP 136/82; PULSE 85
--- NOTE | 2016-12-23 12:23 | DS ---
CHIEF COMPLAINT: Fatigue, ataxia and fall. HISTORY OF PRESENT ILLNESS: Mr. Colin Iqbal is a 71 years old male who came to [facility] emergency room for ataxia, fall, falling a lot, was admitted, got treatment, improved, transferred to TCU. In TCU, he got physical therapy, rehab. he got better and then discharged to home. PAST MEDICAL HISTORY: Congestive heart failure, COPD, Parkinson's disease, diabetes mellitus, falling, dyspepsia, schizophrenia. FAMILY HISTORY: Father and mother noncontributory. HABITS: No smoking. No drugs. No ethanol. ALLERGIES: THE PATIENT IS NOT ALLERGIC TO ANY MEDICATIONS. HOME MEDICATIONS: Reviewed by me. REVIEW OF SYSTEMS: The patient is seen and examined at the bedside, looking comfortable. No nausea, vomiting, or diarrhea. No hematuria or hematochezia. No swelling of the legs. No chest pain. No palpitations. No headache or dizziness. PHYSICAL EXAMINATION: VITAL SIGNS: Temperature 97.8, pulse 76, blood pressure 120/77 and respiratory rate 18. HEENT: Head is normocephalic and atraumatic. Eyes PERRLA. Extraocular muscles intact. Conjunctivae clear. Nose is patent. Mucous membrane moist. NECK: Supple. No carotid bruits. No JVD or thyromegaly. CHEST: Bilaterally symmetrical. HEART: S1 and S2 positive. LUNGS: Clear to auscultation. ABDOMEN: Soft. Bowel sounds positive. No organomegaly. EXTREMITIES: No edema, no cyanosis NEUROLOGIC: The patient is awake and alert. Moving all 4 extremities. No focal deficit. LABORATORY DATA: White blood cell is 6.5, hemoglobin 10.6, hematocrit 32.2 and platelets 217. Sodium 134, potassium 4.7, BUN 39, creatinine 1.5 and blood glucose 384. ASSESSMENT AND PLAN: Mr. Colin Iqbal is a 71 years old male with anemia, renal insufficiency, uncontrolled diabetes mellitus, history of fall, fatigue, schizophrenia, noncompliant, history of rhabdomyolysis, hypercholesterolemia, obesity, congestive heart failure, got physical therapy, got better. Discharged home on 12/07/2016. Prescription medication given. Follow up with primary care physician. Kylee Beatty MD MTDD
== END 2016-12-07 12:29 | disposition home or self-care (01) | DRG 638 ==
LOC: TRCU 18:23
PROVIDERS: ADMIT Internal Medicine; ATTEND Internal Medicine
PROC: F07Z9FZ Gait Training/Functional Ambulation Treatment using Assistive, Adaptive, Supportive or Protective Equipment (ICD-10-PCS; principal; 2016-12-03)
PROC: 3E0F7GC Introduction of Other Therapeutic Substance into Respiratory Tract, Via Natural or Artificial Opening (ICD-10-PCS; 2016-12-03)
PROC: F08Z4FZ Home Management Treatment using Assistive, Adaptive, Supportive or Protective Equipment (ICD-10-PCS; 2016-12-04)
DX: E11.65 Type 2 diabetes mellitus with hyperglycemia (principal); M62.82 Rhabdomyolysis; G20 Parkinson's disease; I11.0 Hypertensive heart disease with heart failure; I50.9 Heart failure, unspecified; F20.9 Schizophrenia, unspecified; R27.0 Ataxia, unspecified; E78.00 Pure hypercholesterolemia, unspecified; K21.9 Gastro-esophageal reflux disease without esophagitis; Z91.19 Patient's noncompliance with other medical treatment and regimen; J44.9 Chronic obstructive pulmonary disease, unspecified; G47.33 Obstructive sleep apnea (adult) (pediatric); E66.9 Obesity, unspecified; Z68.30 Body mass index [BMI] 30.0-30.9, adult; Z91.81 History of falling